=== PATIENT | female | born 1965 | race Caucasian/White ===

== ENCOUNTER → 2016-06-07 | Outpatient (CLI) | payer BC ==
--- NOTE | 2016-06-07 15:45 | KCIC ---
PROCEDURE Pelvic and transvaginal ultrasound HISTORY Enlarged uterus COMPARISON None FINDINGS Multiple transabdominal sonographic images of the pelvis are submitted. Pelvic structures are poorly visualized on this portion of exam. No significant free fluid is demonstrated. Transvaginal ultrasound: Multiple transvaginal sonographic images of the pelvis are submitted. Ovaries could not be visualized. No free fluid is demonstrated. Uterus is enlarged at 13.7 x 5.8 x 7.1 centimeters, no definitive focal uterine mass demonstrated. There are nabothian cysts present. Endometrium is estimated at 0.6 centimeters. IMPRESSION 1. Uterus is enlarged although no discrete uterine mass demonstrated. However uterine parenchyma is suboptimally demonstrated. Adenomyosis would be in the differential considerations. 2. Neither ovary could be visualized. Electronically signed by: Dylan Dawkins MD (Jun 07, 2016 15:43:20)
== END | disposition home or self-care (01) ==
LOC: KCIC US 14:23
PROVIDERS: ATTEND Obstetrics & Gynecology
DX: N85.2 Hypertrophy of uterus (principal)
CPT/HCPCS: 76830; 76856

== ENCOUNTER → 2016-09-26 | Outpatient (CLI) | payer BC ==
[2016-09-26 14:00] LABS: BASO % 1 % (0-3); EOS % 1 % (0-3); HEMATOCRIT 38.5 % (36.0-47.0); HEMOGLOBIN 13.3 g/dL (12.0-15.5); LYMPH # 1.9 x10^3/uL (1.0-4.8); LYMPH % 30 % (24-48); MEAN CORPUSCULAR HEMOGLOBIN 27 pg (25-35); MEAN CORPUSCULAR HGB CONC 35 g/dL (31-37); MEAN CORPUSCULAR VOLUME 77 fL (79-100); MONO % 9 % (0-9); NEUT % 59 % (31-73); PLATELET COUNT 264 x10^3/uL (140-400); RED BLOOD COUNT 5.02 x10^6/uL (3.50-5.40); RED CELL DISTRIBUTION WIDTH 15.9 % (11.5-14.5); WHITE BLOOD COUNT 6.5 x10^3/uL (4.0-11.0)
[2016-09-26 14:23] LABS: CALCIUM 9.4 mg/dL (8.5-10.1); CREATININE 0.8 mg/dL (0.6-1.0); POTASSIUM 4.5 mmol/L (3.5-5.1)
== END | disposition home or self-care (01) ==
LOC: SURGPAT 13:16
PROVIDERS: ATTEND Obstetrics & Gynecology
DX: Z01.812 Encounter for preprocedural laboratory examination (principal)
CPT/HCPCS: 36415; 80048; 85027

== ENCOUNTER 2016-10-03 09:31 | Observation (INO) | payer BC ==
[~2016-10-03] VITALS: Ht 157.5 cm; Wt 78.5 kg
[~2016-10-03 09:31] MED LIST: 0.9 % SODIUM CHLORIDE 50 ML VIAL. IJ ONE; BUPIVAC MPF-EPI 0.5%-1:200000 30 ML VIAL. ONE; BUPIVACAINE-EPI 0.5%-1:200000 50 ML VIAL. ONE; ESTROGENS, CONJ VAGINAL CREAM 30GM TUBE. ONE; HYDROmorphone 2 MG/ML VIAL IV PRN; IV RINGERS,LACTATED 1000ML 1,000 ML IV SCH; LIDOCAINE 1% 1 ML SYRINGE. ID PRN; MORPHINE SULFATE 2 MG/ML DISP.SYRIN. IV PRN; ONDANSETRON PF 4 MG/2 ML VIAL. IV PRN; PROCHLORPERAZINE 10 MG/2 ML VIAL. IV PRN; fentaNYL PF VIAL 100 MCG/2 ML VIAL IV PRN
[2016-10-03 10:33] LABS: NEG OBC UR NEG; POS OBC UR POS
[2016-10-03] MEDS ORDERED: ONDANSETRON PF 4 MG/2 ML VIAL. ONE (11:21)
[2016-10-03] MEDS ORDERED: LIDOCAINE 2% PF Vial for OR 5 ML VIAL. ONE (11:21)
[2016-10-03] MEDS ORDERED: DEXAMETHASONE SOD PHOS 20 MG/5 ML VIAL. ONE (11:21)
[2016-10-03] MEDS ORDERED: PROPOFOL 20 ML IV ONE (11:21)
[2016-10-03] MEDS ORDERED: FAMOTIDINE 20 MG/2 ML VIAL ONE (11:21)
[2016-10-03] MEDS ORDERED: fentaNYL PF VIAL 100 MCG/2 ML VIAL ONE ×2 (11:50→12:47)
[2016-10-03] MEDS ORDERED: ROCURONIUM 100 MG/10 ML VIAL. ONE (11:50)
[2016-10-03] MEDS ORDERED: MIDAZOLAM HCL/PF 2 MG/2 ML VIAL. ONE (11:50)
[2016-10-03] MEDS ORDERED: GLYCOPYRROLATE 1 MG/5 ML VIAL. ONE (13:11)
[2016-10-03] MEDS ORDERED: NEOSTIGMINE 10 MG/10 ML VIAL. ONE ×2 (13:11→13:12)
[2016-10-03] MEDS ORDERED: KETOROLAC 60 MG/2 ML INJ FOR OR. ONE (13:17)
[2016-10-03] MEDS ORDERED: SEVOFLURANE > 120 MINUTES. IH ONE (14:09)
--- NOTE | 2016-10-03 14:16 | DISCH ---
DISCHARGE INSTRUCTIONS Condition on Discharge Condition on Discharge: Stable Activity After Discharge Activity Instructions for Disc: Avoid exertion, Progressive ambulation Lifting Instructions after Dis: Do not lift >10 pounds Exercise Instruction after Dis: Progress as tolerated Driving Instructions after Dis: No driving for 2 weeks Weight Bearing Status after Di: As tolerated Diet after Discharge Diet after Discharge: Regular Wound Incision Care Wound/Incision Care: Ice to area for comfort Contacting the DRAlejandra after DC Call your doctor for: If your condition worsens Follow-Up Follow up with: Dr. Avalos in 1 week as scheduled BONNY AVALOS MD Oct 03, 2016 14:16
[2016-10-03] MEDS ORDERED: MAG HYDROX/ALUMINUM HYD/SIMETH 30 ML ORAL.SUSP PO PRN (14:30)
[2016-10-03] MEDS ORDERED: diphenhydrAMINE 50 MG/ML VIAL IV PRN (14:30)
[2016-10-03] MEDS ORDERED: NALOXONE 0.4 MG/ML VIAL. IV PRN (14:30)
[2016-10-03] MEDS ORDERED: CALCIUM CARBONATE 500 MG TAB.CHEW PO PRN (14:30)
[2016-10-03] MEDS ORDERED: HYDROcodone/APAP 5/325MG 1 TAB TABLET PO PRN (14:30)
[2016-10-03] MEDS ORDERED: HYDROmorphone 2 MG/ML VIAL IM PRN (14:30)
[2016-10-03] MEDS ORDERED: 0.9 % SODIUM CHLORIDE 10 ML DISP.SYRIN. IV PRN (14:30)
[2016-10-03] MEDS ORDERED: LACTULOSE 20 GM/30 ML SOLUTION. PO PRN (14:30)
[2016-10-03] MEDS ORDERED: SIMETHICONE 80 MG TAB.CHEW PO PRN (14:30)
[2016-10-03] MEDS ORDERED: BISACODYL 10 MG SUPP.RECT. PR PRN (14:30)
[2016-10-03] MEDS ORDERED: diphenhydrAMINE HCL 25 MG CAPSULE PO PRN (14:30)
[2016-10-03] MEDS ORDERED: IBUPROFEN 600 MG TABLET. PO PRN (14:30)
[2016-10-03] MEDS ORDERED: ZOLPIDEM 5 MG TABLET. PO PRN (14:30)
[2016-10-03] MEDS ORDERED: METOCLOPRAMIDE HCL 10 MG/2 ML VIAL. IV PRN (14:30)
[2016-10-03] MEDS ORDERED: ONDANSETRON PF 4 MG/2 ML VIAL. IV PRN (14:30)
--- NOTE | 2016-10-03 14:31 | PDOC ---
BRIEF OPERATIVE NOTE Date: Oct 03, 2016 Pre-Op Diagnosis menorrhagia, urinary incontinence (occasional), uterine enlargement on US, cystocele Post-Op Diagnosis Pelvic adhesive disease Procedure Performed lavh and bso with anterior repair and adhesiolysis Surgeon Savi Wallboard Worker Rahat Anesthesiologist yes Anesthesia Type: General Blood Loss 75cc IV Fluid see anesthesia report Urine Output 200cc clear urine Specimens Obtained uterus, tubes, ovaries Findings see dictation Complications none OPerative Note see dictation [id number] BONNY AVALOS MD Oct 03, 2016 14:31
[2016-10-03] MEDS: fentaNYL PF VIAL 100 MCG/2 ML VIAL IV PRN ×2 (14:50→14:56)
[2016-10-03 16:00] VITALS: BP 103/61
[2016-10-03] MEDS ORDERED: ESTRADIOL WEEKLY 0.1 MG PATCH. TD SCH (16:00)
[2016-10-03] MEDS: HYDROmorphone 2 MG/ML VIAL IV PRN ×3 (16:51→21:42)
[2016-10-03] MEDS: KETOROLAC TROMETHAMINE 30 MG/ML INJ. IV PRN (20:21)
--- NOTE | 2016-10-03 20:21 | OP ---
DATE OF SURGERY: 10/03/2016 PREOPERATIVE DIAGNOSES: Menorrhagia, urinary incontinence, and the uterine enlargement seen on ultrasound. POSTOPERATIVE DIAGNOSES: Menorrhagia, urinary incontinence, the uterine enlargement seen on ultrasound, and pelvic adhesive disease. PROCEDURE: LAVH with BSO and the anterior repair with adhesiolysis. SURGEON: Dr. Elizabet Avalos and Dr. Giang. ANESTHESIA: General. COMPLICATIONS: Just the pelvic adhesions were not anticipated. ESTIMATED BLOOD LOSS: 75 mL approximately. INTRAVENOUS FLUIDS: Please see the anesthesia report. URINE OUTPUT: She had 200 mL of clear urine. SPECIMENS OBTAINED: Uterus tubes and ovaries. DESCRIPTION OF PROCEDURE: After informed consent was obtained, the patient was taken to the operating room and given a smooth induction of anesthesia without complications. Her abdomen, perineum, and vagina were prepped and draped in usual sterile fashion. A Tran catheter had been placed. She also received a gram of Ancef prior to the onset of procedure. Her legs were placed in lithotomy, a bivalve speculum was placed in the vagina and the anterior lip of the cervix was grasped with a single tooth tenaculum. The cervicovaginal junction was infiltrated with 0.5% Marcaine with epinephrine 10 mL injected at 2, 4, 8, and 10 o'clock on the cervix. We then placed a Valtchev through the cervical os and attached to the tenaculum. The speculum was then removed. We changed gloves and I went above. Due to the fact that we expected the uterus to be 14 weeks size, as it was reported on ultrasound, we went slightly above the umbilicus to make our incision. The bladeless trocar was placed down through this incision using the [employer] technology. The camera confirmed good trocar placement. After the trocar was placed, the patient was placed in Trendelenburg. The uterus was noted to be densely adherent to the anterior abdominal wall. She also had some filmy adhesions on the left side. We placed two lateral ports on the sides under direct visualization, these were both 5 mm ports. We used the LigaSure to sharply lyse the filmy adhesions on the left side and then we began to take down the adhesions between the uterus and the anterior abdominal wall. It became apparent that there were more filmy adhesions further down on the uterus and that most of the dense adhesions were at the fundus. Once these were taken down, we were able to bluntly dissect most of the rest of the adhesions down to the bladder. We then proceeded to cauterize across the round ligament bilaterally. This ligament was transected and then a window was created in the medial leaf of the broad ligament. We then elevated the tube and ovary on the left side and cauterized across the infundibulopelvic ligament. We tried to visualize the ureter, unfortunately, there were some adhesions that were able to see the ureter well. We were able to lyse these sharply with the LigaSure as well. We unfortunately were not able to visualize the ureter on the left side. We stayed high on the IP ligament close to the ovary and the ovary was from the sidewall. We then came down and cauterized the branches of the uterine artery just underneath the ovary. The same procedure was carried out on the opposite side. We did see the ureter on the right side. We then created a bladder flap anteriorly using a combination of sharp and blunt dissection. We then came down the sides of the uterus, cauterizing the branches of the uterine artery all the way down to the uterosacral ligament. We then went below to continue with the procedure. The weighted speculum was placed back in the vagina and the tenaculum and Valtchev were removed from the cervix. We then placed 2 Mirella thyroid clamps on the cervix. The cervicovaginal junction was incised circumferential and then a Ray-Haylie was used to dissect the bladder bluntly off of the anterior portion of the cervix. This was a little bit difficult, we did use some sharp dissection with the Metzenbaum scissors and then we were able to get in anteriorly, we then incised the posterior peritoneum using Metzenbaum scissors. The peritoneum was then tacked to the posterior vaginal wall and saved for later use and a Evan speculum was placed intraperitoneally. We then proceeded to clamp, cut, and ligate the uterosacral ligaments using a Chang transfixion suture. These were tacked to the lateral vaginal sidewalls and saved for later use. We then used the vaginal LigaSure to cauterize what was left of the uterosacral and cardinal ligaments and what was left of the uterine arteries. Once the uterus was free, we did have to morcellated a tiny bit to get it to come through the vagina. We then closed the peritoneum with a pursestring suture of 2-0 Vicryl and then closed the vaginal wall with a running locking stitch of 2-0 Vicryl. We then infiltrated the anterior vaginal wall with a solution of 0.25% Marcaine with epinephrine and 200 mL of injectable saline, it was 50-200. We used only 20 mL of the solution. Once the anterior vaginal wall was injected, we were able to create an incision with the knife just along the anterior vaginal wall. We then used the Allis clamps to open the vaginal wall in the midline and dissect the bladder bluntly off of the attachments to the anterior vaginal wall. Once this was done, we were able to reduce the cystocele with interrupted mattress sutures. These were placed to reduce the cystocele. The vaginal wall was then trimmed a little bit and the vaginal wall was closed with a running locking stitch of 2-0 Vicryl. At this point, good hemostasis was noted. We did not pack the vagina. We went back above to irrigate the pelvis after changing gloves. The pelvis was irrigated and no bleeding was noted. We did spray Tisseel along all the raw surfaces and then we removed the trocars under direct visualization. The gas was allowed to escape and we did take one last look at the vaginal cuff and it was noted to be dry. Once the ports were removed, we closed the port sites with an interrupted suture of 4-0 nylon. The patient tolerated the procedure well. There were no complications. ELIZABET AVALOS MD DR: ADI/crystal JOB#: [id number] / [id number]
[2016-10-03 21:30] VITALS: BP 99/66
[2016-10-03] MEDS: oxyCODONE/APAP 5/325 1 TAB TABLET PO PRN (21:40)
[2016-10-03] MEDS: TAMSULOSIN 0.4 MG CAP.ER.24H. PO SCH (22:23)
[2016-10-04 01:35] VITALS: BP 101/62
[2016-10-04] MEDS: oxyCODONE/APAP 5/325 1 TAB TABLET PO PRN ×3 (01:40→10:18)
[2016-10-04] MEDS: KETOROLAC TROMETHAMINE 30 MG/ML INJ. IV PRN (06:14)
[2016-10-04 06:20] VITALS: BP 96/60
--- NOTE | 2016-10-04 08:47 | PDOC ---
SURGICAL PROGRESS NOTE Subjective Doing okay. Feels very sore in midline and had some bladder spasms last night. Started on flomax. Ambulated this am. Voided a tiny bit this morning after catheter removed. No bleeding. Vital Signs Vital Signs Date Time Temp Pulse Resp B/P (MAP) Pulse Ox O2 Delivery O2 Flow Rate FiO2 10/04/16 06:20 97.9 63 24 96/60 (72) 96 Room Air 97.9 10/03/16 15:52 2 I&O Intake and Output 10/04/16 07:00 Intake Total 3440 ml Output Total 1030 ml Balance 2410 ml Intake Oral 500 ml IV Total 2700 ml Blood Product IV Normal Saline Flush 240 ml Output Urine Total 980 ml Estimated Blood Loss 50 ml # Voids 3 PATIENT HAS A MCGRAW: No General: Alert, Oriented X3, Cooperative, No acute distress HEENT: Mucous membr. moist/pink Lungs: Clear to auscultation, Normal air movement Heart: Regular rate, Normal S1, Normal S2, No murmurs Abdomen: Normal bowel sounds, Soft, No tenderness, No hepatosplenomegaly, No masses, Other (Incisions c/d/i. Umbilical incision dressing was bloody, but when removed, the incision underneath was dry) Extremities: No clubbing, No cyanosis, No edema, Normal pulses, No tenderness/ swelling Labs Laboratory Tests Test 10/03/16 09:55 10/03/16 16:35 Urine Test Negative (NEG) Hematocrit 35.5 % (36.0-47.0) Laboratory Tests Test 10/03/16 09:55 10/03/16 16:35 Urine Test Negative (NEG) Hematocrit 35.5 % (36.0-47.0) I have reviewed the following labs, vitals Problem List Pod #1 from [facility] and bso with adhesiolysis and anterior repair. Increase diet, ambulate today, Probable discharge later if able to void. If not able to void, will place leg bag catheter over weekend Problems: BONNY AVALOS MD Oct 04, 2016 08:47
--- NOTE | 2016-10-04 08:53 | PDOC3 ---
Discharge Summary Visit Information Date of Admission: Oct 03, 2016 Date of Discharge: Oct 04, 2016 Admitting Diagnosis: menorrhagia, enlarged uterus , cystocele, Final Diagnosis same plus pelvic adhesive disease Brief Hospital Course Allergies Allergies Coded Allergies Type Severity Reaction Last Updated Verified No Known Drug Allergies 10/03/16 No Vital Signs Vital Signs Date Time Temp Pulse Resp B/P (MAP) Pulse Ox O2 Delivery O2 Flow Rate FiO2 10/04/16 06:20 97.9 63 24 96/60 (72) 96 Room Air 97.9 10/03/16 15:52 2 Lab Results Laboratory Tests Test 10/03/16 09:55 10/03/16 16:35 Urine Test Negative (NEG) Hematocrit 35.5 % (36.0-47.0) Laboratory Tests Test 10/03/16 09:55 10/03/16 16:35 Urine Test Negative (NEG) Hematocrit 35.5 % (36.0-47.0) Brief Hospital Course Ms. Lyles is a 51 old F who presented with menorrhagia, urinary incontinence and a cystocele, She was found to have an enlarged uterus on US. She presented for lavh bso and anterior repair. At surgery, she was found to have the uterus stuck to the anterior abdominal wall and this had to be peeled/ cut off. She tolerated the procedure well. She had some mild bladder spasm last night and was started on flomax. Today, she is awake and alert. She is having moderate pain and is tolerating her oral pain medication. Her catheter is out and she has voided a small amount. We will watch today to see if she can adequately void before going home. Discharge Information Condition at Discharge: Improved Follow Up: Weeks (1) Disposition/Orders: D/C to Home Miscellaneous Medications Info (No Known Medications Prior To Admisstion), 1 EACH , (Reported) Patient Instructions Patient Instructions F/u 1 week in office. If unable to void, will send home on leg bag and prophylactic abx. No lifting over 10#, no driving and nothing in the vagina. BONNY AVALOS MD Oct 04, 2016 08:53
[2016-10-04] MEDS: TAMSULOSIN 0.4 MG CAP.ER.24H. PO SCH (09:27)
[2016-10-04 12:30] VITALS: BP 108/66
--- NOTE | 2016-10-07 14:24 | PATHOLOGY ---
PATHOLOGY REPORT * * * * * * * * FINAL DIAGNOSIS: Uterine corpus with bilateral attached fallopian tubes and ovaries and separate detached uterine cervix, laparoscopic assisted vaginal hysterectomy with bilateral salpingo-oophorectomy: - Adenomyosis, uterine corpus, with myometrial hypertrophy. - Leiomyomas, uterine corpus, intramural and subserosal, several. - Chronic cervicitis with focal squamous metaplasia. - Nabothian cysts, cervix, small, multiple. - Inactive/atrophic endometrium. - Focal recent paratubal hemorrhage of left fallopian tube. - Small serous inclusion cysts of bilateral ovaries. COMMENT: There is no evidence of malignancy. (JPM:pit; 10/07/2016) REPORT ELECTRONICALLY SIGNED BY: Sg Fall M.D. DATE/TIME: 10/07/2016 14:24 * * * * * * * * GROSS PATHOLOGY: The specimen is received in formalin labeled "Lili Saeed, uterus, cervix, bilateral ovaries and tubes". Received is a 111 g , 7.2 x 6.7 x 5.2 cm uterine corpus with attached adnexa, weighing 8 and 7 g, left and right, respectively, and separately submitted cervical stump weighing 35 g. The uterine serosa is light restrepo and smooth to disrupted in appearance. The uterine corpus is oriented using the ovarian placement. The specimen is opened laterally to reveal an irregularly shaped endometrial cavity measuring 3.1 cm in length by 1.9 cm in width. The endometrium is light restrepo in appearance and measures 0.1 cm in thickness. Serial sectioning reveals a light restrepo, trabeculated myometrium measuring up to 2.7 cm in thickness displaying several intramural and subserosal fibroids ranging in size from 0.8 to 1.0 cm in maximum dimensions. The left adnexa consists of a fimbriated fallopian tube measuring 4.2 cm in length by up to 1.4 cm in diameter attached to a 2.6 x 1.6 x 1.0 cm ovary. Sectioning through the fallopian tube reveals a patent lumen, as well as a large amount of blood coagulum present at the dilated aspect. The ovarian surface displays several attached cystic structures ranging in size from 0.1 to 0.4 cm. Sectioning through the ovary reveals multiple cystic structures ranging in size from 0.1 to 0.4 cm filled with clear fluid, as well as pale restrepo, normal ovarian stroma. The right adnexa consists of a fimbriated fallopian tube measuring 4.7 cm in length by up to 0.8 cm in diameter attached to a 3.6 x 1.4 x 1.0 cm ovary. Sectioning through the fallopian tube reveals a pinpoint to patent lumen and the fallopian tube appears grossly unremarkable. The ovarian surface displays several attached cystic structures measuring 0.1 cm filled with clear fluid. Sectioning through the ovary reveals a single cystic structure measuring 0.6 cm filled with clear fluid, as well as pale restrepo, normal ovarian stroma. The 35 g cervical stump measures 9.3 x 4.1 x 3.0 cm and has a slight amount of attached uterus at the distal aspect. The 0.7 cm cervical os is surrounded by pale restrepo, smooth ectocervical mucosa. The cervical stump is oriented using the peritoneal reflection and the anterior paracervical area is inked black. The cervical stump is opened laterally to reveal a pale restrepo, glistening endocervical canal measuring 4.3 cm in length. The specimen is submitted representatively as follows: A1 12:00 cervix A2 6:00 cervix A3 anterior endomyometrium A4 posterior endomyometrium with attached intramural fibroid A5 workforce services representative sections of intramural and subserosal fibroids A6 left adnexa A7 right adnexa. (CAA; 10/05/2016) INITIAL CPT CODE(S): A; 02207 Professional services [place] [address] Technical services performed by [facility] at [address] [place] [address]. SPECIMEN(S) RECEIVED: A.Uterus, cervix, bilateral ovaries and tubes CLINICAL HISTORY: Adenomyosis, urinary incontinence, hypermobility, metrorrhagia, dysmenorrhea PATIENT: LILI SAEED /AGE: 709/24/1965 (Age: 51) PATIENT #: [id number] ALT CASE #: SPECIMEN COLLECTION DATE: 10/03/2016 SPECIMEN RECEIVED DATE: 10/04/2016 [facility] - [address] [place] [address] - PHONE: [phone] * * * END OF REPORT * * *
== END 2016-10-04 13:06 | disposition home or self-care (01) ==
LOC: SURG 09:31 → 3 NORTH 14:32
PROVIDERS: ADMIT Obstetrics & Gynecology; ATTEND Obstetrics & Gynecology
DX: N92.0 Excessive and frequent menstruation with regular cycle (principal); R32 Unspecified urinary incontinence; K66.0 Peritoneal adhesions (postprocedural) (postinfection); N81.10 Cystocele, unspecified; N73.6 Female pelvic peritoneal adhesions (postinfective); N85.2 Hypertrophy of uterus; N32.89 Other specified disorders of bladder
CPT/HCPCS: 36415; 57240; 58552; 81025; 85014; 86850; 86900; 86901; 96374; 96375; 96376; C1769; G0378; G0379; J0690; J1100; J1170; J1885; J2001; J2250; J2405; J2704; J2710; J3010; J3490; J7030; J7120; S0028; 88307

== ENCOUNTER → 2018-03-30 | Outpatient (CLI) | payer BC ==
--- NOTE | 2018-03-30 16:32 | KCIC ---
Bilateral digital screening mammograms with 3-D tomosynthesis: Reason for examination: Routine screening. Comparison is made to previous studies dated 05/15/2015 and 04/14/2014. Bilateral mammograms in CC and oblique projections were obtained with 2-D imaging and 3-D tomosynthesis imaging on a Siemens Inspiration unit and reviewed on the workstation. Interpretation was made with the benefit of CAD. The skin and nipples show no abnormalities. No abnormal axillary lymph nodes are seen. The breast parenchyma shows scattered fatty and fibroglandular density. (Breast density: Category B.) There are no dominant masses, suspicious calcifications or architectural distortion. Impression: No evidence of malignancy. Recommend routine screening. BI-RAD Category 1: Negative. "Our facility is accredited by the [employer] Mammography Program." This patient's information has been entered into a reminder system for the patient to be notified with the results of her examination and a target date for the next mammogram. Electronically signed by: Sandra Orr MD (03/30/2018 4:27 PM) [id number]
== END | disposition home or self-care (01) ==
LOC: KCIC MAMMO 14:35
PROVIDERS: ATTEND Internal Medicine
DX: Z12.31 Encounter for screening mammogram for malignant neoplasm of breast (principal)
CPT/HCPCS: 77063; 77067

== ENCOUNTER → 2020-09-15 | Outpatient (CLI) | payer BC ==
--- NOTE | 2020-09-15 14:55 | KCIC ---
Bilateral digital screening mammograms with 3-D tomosynthesis: Reason for examination: Routine screening. Comparison is made to previous studies dated back to 07/31/2011. Bilateral mammograms in CC and oblique projections were obtained with 2-D imaging and 3-D tomosynthes is imaging on a Siemens Inspiration unit and reviewed on the workstation. Interpretation was made wit h the benefit of CAD. The skin and nipples show no abnormalities. No abnormal axillary lymph nodes are seen. The breast par enchyma shows scattered fatty and fibroglandular density. (Breast density: Category B.) There are no dominant masses, suspicious calcifications or architectural distortion. Impression: No evidence of malignancy. Recommend routine screening. BI-RAD Category 1: Negative. "Our facility is accredited by the [employer] Mammography Program." This patient's information has been entered into a reminder system for the patient to be notified wit h the results of her examination and a target date for the next mammogram. Electronically signed by: Sandra Orr MD (09/15/2020 2:52 PM) [id number]
== END ==
LOC: KCIC MAMMO 12:32
PROVIDERS: ATTEND Internal Medicine
DX: Z12.31 Encounter for screening mammogram for malignant neoplasm of breast (principal)
CPT/HCPCS: 77063; 77067